=== PATIENT | male | born 1990 | race Caucasian/White ===

== ENCOUNTER 2019-05-17 11:30 | Outpatient (RCR) | payer MEDICAID, SELFPAY | END 2019-08-01 23:59 | disposition home or self-care (01) | LOC: ANHBWCAUD 11:30 | DX: Z46.1 Encounter for fitting and adjustment of hearing aid (principal) | CPT/HCPCS: 99199; V5014 ==

== ENCOUNTER 2019-11-28 07:09 | Outpatient (RCR) | payer MEDICAID, SELFPAY | END 2019-11-28 23:59 | disposition home or self-care (01) | LOC: ANHAUDIO 07:09 | DX: Z46.1 Encounter for fitting and adjustment of hearing aid (principal) | CPT/HCPCS: V5014 ==